=== PATIENT | female | born 1990 | race Caucasian/White ===

== ENCOUNTER 2017-05-03 06:09 | Inpatient (IN) ==
[2017-05-03] MEDS ORDERED: PITOCIN 30 UNITS/LR 30 UNITS/500 ML IV.SOLN IV SCH (06:10)
[2017-05-03] MEDS ORDERED: LR 1,000 ML IV SCH (06:10)
[2017-05-03] MEDS ORDERED: KEFZOL 1 GM/D5W 1 GM/50 ML IVPB IV PRN (06:10)
[2017-05-03] MEDS ORDERED: ZOFRAN IV PRN (06:10)
[2017-05-03] MEDS ORDERED: TYLENOL PO PRN (06:10)
[2017-05-03] MEDS ORDERED: PEPCID PO PRN (06:10)
[2017-05-03] MEDS ORDERED: STADOL IV PRN (06:10)
[2017-05-03] MEDS ORDERED: PEPCID IV PRN (06:10)
[2017-05-03] MEDS ORDERED: SODIUM CHLORIDE 0.9% INJ SCH (06:15)
[2017-05-03 07:08] LABS: URINE SOURCE VOIDED
[2017-05-03 07:08] LABS: MANUAL DIFF NEEDED? NO
[2017-05-03 07:11] LABS: BASO% 0.4 % (0.0-0.8); EOS# 0.15 X1000 (0.0-0.7); EOS% 1.8 % (0.0-10.0); HEMATOCRIT 33.4 % (37.0-47.0); HEMOGLOBIN 10.8 g/dL (12.0-16.0); IMM GRAN# 0.18 X1000 (0.0-0.04); IMM GRAN% 2.2 % (0.0-0.5); LYMPH# 2.45 X1000 (1.2-3.4); LYMPH% 29.3 % (20.5-51.1); MCH 29.2 PG (27-31); MCHC 32.3 g/dL (33-37); MCV 90.3 FL (81-99); MONO# 0.69 X1000 (0.11-0.59); MONO% 8.3 % (1.7-9.3); MPV 11.2 FL (7.4-10.4); PLT 209 X1000 (130-400)
[2017-05-03 07:21] LABS: UR AMPHETAMINES QUAL NONE DETECTED (NONE DETECT); UR BARBITUATES QUAL NONE DETECTED (NONE DETECT); UR BENZODIAZEPIN QUAL NONE DETECTED (NONE DETECT); UR CANNABINOIDS QUAL NONE DETECTED (NONE DETECT); UR COCAINE QUAL NONE DETECTED (NONE DETECT); UR MDMA QUAL NONE DETECTED (NONE DETECT); UR METHADONE QUAL NONE DETECTED (NONE DETECT); UR METHAMPHETAMINE QUAL NONE DETECTED (NONE DETECT); UR OPIATES QUAL NONE DETECTED (NONE DETECT); UR OXYCODONE QUAL NONE DETECTED (NONE DETECT); UR PCP QUAL NONE DETECTED (NONE DETECT); UR TCA QUAL NONE DETECTED (NONE DETECT)
[2017-05-03 07:31] LABS: BILIRUBIN URINE NEGATIVE (NEGATIVE); BLOOD URINE NEGATIVE (NEGATIVE); CLARITY CLEAR (CLEAR); COLOR YELLOW; GLUCOSE URINE NEGATIVE (NEGATIVE); LEUKOCYTES URINE 1+ (NEGATIVE); NITRITE URINE NEGATIVE (NEGATIVE); PROTEIN URINE NEGATIVE (NEGATIVE); UROBILINOGEN URINE NORMAL
[2017-05-03] MEDS ORDERED: NAROPIN 0.2% EPIDURAL SCH (09:45)
--- NOTE | 2017-05-03 13:49 | OPERATIVE NOTE ---
PROCEDURE DATE: 05/03/2017 DELIVERING PHYSICIAN: Antony Barreto MD TYPE OF DELIVERY: Spontaneous controlled vaginal delivery. ANESTHESIA: Epidural. FINDINGS: At 12:54, a 6 pound, 14 ounce male infant was delivered in occiput anterior presentation. There was a nuchal cord x1. Apgars were 9 at 1 minute and 10 at 5 minutes. SUMMARY: In summary, Ms Blas is a 26-year-old, 2, para 1-0-0-1, at term gestation. Her blood type is O positive, rubella immune. Hepatitis B surface antigen, HIV, and group B strep are negative. She was brought into the labor and delivery today for elective induction of labor. She was 2 cm upon admission. Membranes were ruptured revealing clear fluid. An epidural was placed for labor pain management. She progressed to labor without signs of stress or dystocia. She became complete and began pushing and very soon crowned. At that point, she was placed in dorsal lithotomy position. The perineum was prepped and draped in usual fashion. Spontaneous controlled vaginal delivery occurred. Once the infant's head was delivered, the shoulders and body were delivered without complications. Oropharynx was bulb suctioned. Cord was clamped and cut, and infant was handed to the nurses for further care and evaluation. Cord blood was obtained. Placenta was spontaneously delivered and was intact. There was a right labial laceration, which was repaired with a [id number] 3-0 Vicryl suture. BLOOD LOSS: Approximately 200 mL. COMPLICATIONS: No complications. Patient remained in the labor and delivery room recovering without difficulty. cc: Antony Barreto MD
[2017-05-03] MEDS ORDERED: BOOSTRIX VACCINE IM ONE (13:58)
[2017-05-03] MEDS ORDERED: BENADRYL IV PRN (13:58)
[2017-05-03] MEDS ORDERED: BENADRYL PO PRN (13:58)
[2017-05-03] MEDS ORDERED: MINERAL OIL PO PRN (13:58)
[2017-05-03] MEDS ORDERED: PERCOCET-5 PO PRN (13:58)
[2017-05-03] MEDS ORDERED: AMBIEN PO PRN (13:58)
[2017-05-03] MEDS ORDERED: CYTOTEC PO PRN (13:58)
[2017-05-03] MEDS ORDERED: M-M-R II VACCINE SUBQ ONE (13:58)
[2017-05-03] MEDS ORDERED: NORCO-5 PO PRN (13:58)
[2017-05-03] MEDS ORDERED: PITOCIN 20 UNITS/LR 20 UNITS/1,000 ML IV.SOLN IV SCH (13:58)
[2017-05-03] MEDS ORDERED: PITOCIN IM PRN (13:58)
[2017-05-03] MEDS ORDERED: HYDROXYZINE IM PRN (13:58)
[2017-05-03] MEDS ORDERED: PITOCIN 30 UNITS/LR 30 UNITS/500 ML IV.SOLN IV ONE (13:58)
[2017-05-03] MEDS ORDERED: XYLOCAINE-MPF 1% INJ PRN (13:58)
[2017-05-03] MEDS ORDERED: VENTOLIN HFA INH PRN (13:58)
[2017-05-03] MEDS ORDERED: NORCO-10 PO PRN (13:58)
[2017-05-03] MEDS ORDERED: PERCOCET-10 PO PRN (13:58)
[2017-05-03] MEDS ORDERED: HYDROXYZINE PO PRN (13:58)
[2017-05-03] MEDS: PERI MEDS (DERMOPLAST/NUPERCAINAL/TUCKS) MISC PRN (15:30)
[2017-05-03] MEDS: MOTRIN PO PRN (15:34)
[2017-05-03] MEDS: PERICOLACE PO SCH (20:31)
[2017-05-04] MEDS: MOTRIN PO PRN ×3 (02:22→21:26)
[2017-05-04 06:28] LABS: HEMATOCRIT 33.4 % (37.0-47.0); HEMOGLOBIN 10.7 g/dL (12.0-16.0); MCH 29.4 PG (27-31); MCV 91.8 FL (81-99); MPV 11.3 FL (7.4-10.4); RBC 3.64 XMIL (4.2-5.4)
[2017-05-04] MEDS: PERICOLACE PO SCH (20:00)
[2017-05-04] MEDS: PERI MEDS (DERMOPLAST/NUPERCAINAL/TUCKS) MISC PRN (20:07)
[2017-05-05] MEDS: MOTRIN PO PRN (11:52)
[2017-05-05 16:21] VITALS: BP 122/85
== END 2017-05-05 16:30 | disposition home or self-care (01) ==
LOC: P.LD 06:09 → P.WC 15:04
PROVIDERS: ADMIT Obstetrics & Gynecology; ATTEND Obstetrics & Gynecology

== ENCOUNTER 2017-06-10 14:18 | Inpatient (IN) ==
[2017-06-10 14:53] LABS: MANUAL DIFF NEEDED? NO
[2017-06-10 15:04] LABS: BASO% 0.3 % (0.0-0.8); EOS% 0.7 % (0.0-10.0); HEMATOCRIT 38.6 % (37.0-47.0); HEMOGLOBIN 12.4 g/dL (12.0-16.0); IMM GRAN# 0.06 X1000 (0.0-0.04); IMM GRAN% 0.4 % (0.0-0.5); LYMPH# 1.64 X1000 (1.2-3.4); LYMPH% 10.7 % (20.5-51.1); MCH 29.2 PG (27-31); MCHC 32.1 g/dL (33-37); MCV 90.8 FL (81-99); MONO# 1.09 X1000 (0.11-0.59); MONO% 7.1 % (1.7-9.3); MPV 11.4 FL (7.4-10.4); NEUT% 80.8 % (42.2-75.2); PLT 249 X1000 (130-400); RBC 4.25 XMIL (4.2-5.4)
[2017-06-10] MEDS ORDERED: DUONEB (A & A) INH ONE (15:07)
[2017-06-10] MEDS ORDERED: SOLU-MEDROL IV ONE (15:07)
--- NOTE | 2017-06-10 15:15 | Diag Imaging Result Doc PS360 ---
EXAM: CHEST-2 VIEWS - 06/10/2017 HISTORY: SOB TECHNIQUE: Chest two views COMPARISON: 05/12/2017 FINDINGS: There is situs inversus/dextrocardia similar to the previous exam. Heart size appears within normal limits. There are infiltrates at the bilateral bases which appear stable on the right and overall mildly decreased on the left, although there is mildly increased infiltrate at the superior left lower lobe. There are apparent small bilateral pleural effusions. There is no pneumothorax identified. IMPRESSION: Bibasilar infiltrates which appear stable on the right and overall mildly decreased on the left compared to the previous exam. Small bilateral pleural effusions. Electronically signed by Cristian Prather 06/10/2017 3:12 PM
[2017-06-10 15:18] LABS: AGAP 13; ALBUMIN 3.6 g/dL (3.5-5.0); ALKALINE PHOSPHATASE 99 U/L (32-104); BUN 4 mg/dL (8-22); CALCIUM 9.1 mg/dL (8.8-10.2); CHLORIDE 100 mmol/L (98-107); COSMO 265; GOT 14 U/L (10-30); GPT 14 U/L (10-36); POTASSIUM 3.4 mmol/L (3.5-5.1); SODIUM 134 mmol/L (136-145); TCO2 21 mmol/L (25-35)
--- NOTE | 2017-06-10 15:24 | PROVIDER DOCUMENTATION ---
This chart was entered by Maura Harrington Scribe, acting as scribe for Vanda Phillips CRNP. HPI-Respiratory General - General Chief Complaint: Asthma Attack Stated Complaint: PAIN WHEN BREATHING Time Seen by Provider: 06/10/17 15:02 Source: patient Allergies/Adverse Reactions: Patient Allergies Allergy/AdvReac Type Severity Reaction Status Date / Time latex Allergy Unknown HIVES Verified 06/10/17 14:25 Home Medications: Home Medication List Medication Instructions Recorded Confirmed Last Taken Type Albuterol Sulfate [Proair Hfa] 8.5 gm IH PRN PRN 10/13/15 06/10/17 Unknown History - History of Present Illness-Resp Nature of Presenting Problem: Pt is 26 y/o F presents to the ED with recheck for pneumonia. Pt states was diagnosed with pneumonia after child . Pt states 5 wks post . Pt states hx of asthma. Pt states fever this am. Pt states symptoms have been presents for 3 days. Quality of Pain: reports: aching Severity in ED: reports: mild Onset/Duration: reports: 3 days ago Timing: reports: still present Exposure: reports: unknown cause Cough Quality/Degree: reports: moderate Episode Frequency: occasional episodes Current Respiratory Medication Therapy: Initiated see nurses note Modifying Factors: improves with: nothing Associated Symptoms: reports: cough, fever/chills (fever), hurts to breathe, shortness of breath. denies: chest pain/soreness, dizziness, earache, facial pain, flu-like symptoms, headache, heart racing, hyperventilating, lightheadedness, muscle/bodyaches, nasal congestion, nasal drainage, sinus pain , short of breath, sore throat, sweaty, wheezing Similar Symptoms Previously?: Yes (present for 3 days ) Recently seen or treated by another doctor?: No Review of Systems - Adult - REVIEW OF SYSTEMS - ADULT Constitutional: reports: fever. denies: chills Eyes: denies: blurred vision, double vision Ears, Nose, Mouth & Throat: denies: ear pain, nose pain, throat pain Cardiovascular: reports: irregular heart rate (tachy). denies: chest pain, heart murmur Respiratory: reports: cough, shortness of breath. denies: wheezing Gastrointestinal: denies: abdominal pain, diarrhea, nausea, vomiting Genitourinary: denies: dysuria, flank pain, hematuria Musculoskeletal: denies: bone pain, joint pain, neck pain Integumentary: denies: hives, itching, rash Neurological: denies: dizziness/vertigo, headache/migraines, loss of balance, numbness, seizure, syncope Psychiatric: denies: anxiety, depression, suicidal thoughts Endocrine: reports: no symptoms reported Hematologic/Lymphatic: reports: no symptoms reported Allergic/Immunologic: reports: no symptoms reported All Other Systems: Reviewed and Negative Past History - Adult - PAST MEDICAL HISTORY-ADULT Review of Records: reports: Nursing Assessment Review, Medications Reviewed, Social history reviewed & non-contributory. Major Childhood Illnesses: reports: denies history Cardiovascular: reports: denies history Respiratory: reports: asthma Gastrointestinal: reports: denies history Obstetrical/Gynecological: reports: denies history Genitourinary: reports: denies history Musculoskeletal: reports: denies history Neurological: reports: denies history Psychiatric: reports: anxiety Endocrine/Immune: reports: denies history Other Conditions: reports: denies history - PRIOR SURGERIES/PROCEDURES Surgical/Procedure History: reports: reviewed, not pertinent - IMMUNIZATION STATUS Childhood Immunizations: See Nurse Assessment Flu Vaccine: See Nurse Assessment - FAMILY HISTORY Family History: reviewed, not pertinent - SOCIAL HISTORY Smoking: denies Substance Use: denies Living Situation: family Physical Exam-General - PHYSICAL EXAM-ADULT Initial Vital Signs Reviewed: Yes - CONSTITUTIONAL General Appearance: alert, mild distress. negative: lethargic, slow to respond - EYES Eyes: PERRL/EOMI, pink conjunctivae. negative: pale conjunctivae, sunken eyes - HEAD, EARS, NOSE, MOUTH & THROAT HENMT: normocephalic/atraumatic, moist mucous membranes, normal ENT inspection. negative: angioedema, hearing deficit - NECK Neck: supple, normal inspection. negative: lymphadenopathy, tender lateral - RESPIRATORY Respiratory: chest non-tender, lungs clear, decreased breath sounds. negative: accessory muscle use, crackles, wheezing - CARDIOVASCULAR Cardiovascular: normal peripheral pulses, tachycardia. negative: systolic murmur - GASTROINTESTINAL (ABDOMEN) Abdominal Exam: normal bowel sounds, non tender, soft. negative: distended, rebound, hernia - LYMPHATIC Lymphatic: no adenopathy. negative: enlargement, streaking - MUSCULOSKELETAL Back Exam: normal inspection, no CVA tenderness, no vertebral tenderness. negative: ecchymosis, muscle spasm Extremity: normal range of motion, non-tender, normal gait. negative: deformity , erythema - SKIN Integumentary: normal turgor, warm/dry, pallor. negative: cyanosis, erythema, swelling - NEUROLOGIC Neurologic: grossly normal. negative: aphasia, facial droop - PSYCHIATRIC Psych/Mental Status: normal mood/affect, oriented x 3. negative: paranoid, tearful Progress - PLAN OF CARE/RESULTS Progress/Plan/Lab Results: Vital Signs - 8 hr 06/10/17 14:22 06/10/17 14:36 06/10/17 15:20 Temperature 101.1 F H 99.7 F H Pulse Rate 117 H 124 H Respiratory Rate 18 20 Blood Pressure 108/64 O2 Sat by Pulse Oximetry 96 97 06/10/17 15:44 Temperature 99.7 F H Pulse Rate 147 H Respiratory Rate 22 Blood Pressure 115/76 O2 Sat by Pulse Oximetry 94 L Laboratory Results - last 24 hr 06/10/17 06/10/17 06/10/17 14:50 14:50 14:50 WBC RBC Hgb Hct MCV MCH MCHC RDW Std Deviation Plt Count MPV Immature Gran % (Auto) Neut % (Auto) Lymph % (Auto) Sunflower % (Auto) Eos % (Auto) Baso % (Auto) Immature Gran # (Auto) Neut # (Auto) Lymph # (Auto) Sunflower # (Auto) Eos # (Auto) Baso # (Auto) Sodium 134 L Potassium 3.4 L Chloride 100 Carbon Dioxide 21 L Anion Gap 13 BUN 4 L Creatinine 0.5 Estimated GFR/1.73 m2 > 60 BUN/Creatinine Ratio 8 Glucose 94 Calculated Osmolality 265 Calcium 9.1 Total Bilirubin 0.30 AST 14 ALT 14 Alkaline Phosphatase 99 Auz-R-Danqzezizua Pept 45 Total Protein 8.0 Albumin 3.6 Globulin 4.0 Albumin/Globulin Ratio 1.0 Plasma Lactate 1.1 06/10/17 14:50 WBC 15.38 H RBC 4.25 Hgb 12.4 Hct 38.6 MCV 90.8 MCH 29.2 MCHC 32.1 L RDW Std Deviation 14.1 Plt Count 249 MPV 11.4 H Immature Gran % (Auto) 0.4 Neut % (Auto) 80.8 H Lymph % (Auto) 10.7 L Sunflower % (Auto) 7.1 Eos % (Auto) 0.7 Baso % (Auto) 0.3 Immature Gran # (Auto) 0.06 H Neut # (Auto) 12.44 H Lymph # (Auto) 1.64 Sunflower # (Auto) 1.09 H Eos # (Auto) 0.10 Baso # (Auto) 0.05 Sodium Potassium Chloride Carbon Dioxide Anion Gap BUN Creatinine Estimated GFR/1.73 m2 BUN/Creatinine Ratio Glucose Calculated Osmolality Calcium Total Bilirubin AST ALT Alkaline Phosphatase [id number] Pept Total Protein Albumin Globulin Albumin/Globulin Ratio Plasma Lactate Orders Category Date Time Status Saline Loc NOW Care 06/10/17 14:28 Active CHEST-2 VIEWS [RAD] Stat Exams 06/10/17 14:[address] THORAX W/CONTRAST [CT] Stat Exams 06/10/17 15:59 Ordered BLOOD CULTURE [BLDCUL] Stat Lab 06/10/17 14:28 Ordered BNP [PRO B-NATRIURETIC PEPTIDE] Stat Lab 06/10/17 14:50 Completed CBC WITH DIFF [HEME] Stat Lab 06/10/17 14:50 Completed COMPREHENSIVE METABOLIC PANEL [CHEM] Stat Lab 06/10/17 14:50 Completed LACTATE, PLASMA [CHEM] Stat Lab 06/10/17 14:50 Completed Acetaminophen [Tylenol] Med 06/10/17 15:48 Discontinued 1,000 mg PO NOW ONE Albuterol 2.5MG/Ipratrop 0.5MG [Duoneb (A & A)] Med 06/10/17 15:07 Discontinued 6 ml INH NOW ONE Azithromycin 500 mg/Ns [Zithromax 500 mg/Ns] Med 06/10/17 15:49 Active 500 mg in 250 ml IV NOW CefTRIAXONE 1 GM/NS [Rocephin 1 gm/Ns] Med 06/10/17 15:49 Active 1 gm in 50 ml IV NOW Methylprednisolone Sod Succ [Solu-Medrol] Med 06/10/17 15:07 Discontinued 80 mg IV NOW ONE Aerosol Treatments Routine Oth 06/10/17 15:07 Active Aerosol Treatments Stat Oth 06/10/17 15:07 Active Pulse Oximetry Stat Oth 06/10/17 14:28 Active Discussed plan of care with patient. Patient agrees with plan and verbalizes understanding. Result Diagrams: 06/10/17 14:50 06/10/17 14:50 - XRAY 1 XRAY Study: Chest XRAY Interpretation: Bibasilar infiltrates with small bilat pleural effusions ( [place]) - CONSULTS/PCP/HOSPITALIST Notification #1 *Consult/PCP/Hospitalist*: Dr. Jane Time Discussed: 16:00 Reason/Comments: Admission Consult Disposition: Admit (Please CT chest before she goes up) Departure - Departure Date of Disposition Decision: 06/10/17 Time of Disposition Decision: 15:51 DIAGNOSIS: Pneumonia Qualifiers: Pneumonia type: due to unspecified organism Laterality: bilateral Lung location : lower lobe of lung Qualified Code(s): J18.9 - Pneumonia, unspecified organism Disposition: ADMITTED INPATIENT 09 Certified Medical Emergency: Emergent Condition: Stable Referrals and Follow-Ups: Diane Carvalho [Primary Care Provider] - - Critical Care Note This patient required my direct & personal management of CC.: No Attestation - Physician/ JOANNE Attestation Patient care was provided by Advanced Practice Provider:: Yes Advanced Practice Provider:: Vanda Phillips (The physician is on site and was consulted but did not have face to face contact with the patient. ) Advanced Practice Provider documentation review:: The Mid-level provider documentation, treatment plan and medical decision making was reviewed by the physician who agrees with all treatment and medical decision making by the MLP. The physician spent face to face time with patient:: No Advanced Practice Provider documentation review:: Supervising physician onsite and consulted in the evaluation and care of this patient. The physician did not have a face to face encounter with the patient. This chart was documented by the indicated scribe, (Maura Harrington Scribe) and accurately reflects the services I performed and decisions made by me, Vanda Phillips CRNP, as attested by the provider's signature.
[2017-06-10] MEDS ORDERED: TYLENOL PO ONE (15:48)
[2017-06-10] MEDS ORDERED: ROCEPHIN 1 GM/NS 1 GM/50 ML IVPB IV ONE (15:49)
[2017-06-10] MEDS ORDERED: ZITHROMAX 500 MG/NS 500 MG/250 ML IVPB IV ONE (15:49)
--- NOTE | 2017-06-10 16:50 | Diag Imaging Result Doc PS360 ---
EXAM: CT THORAX W/CONTRAST - 06/10/2017 HISTORY: SOB TECHNIQUE: With intravenous contrast. Dose reduction protocol. COMPARISON: None. FINDINGS: There is dextrocardia with situs inversus. There is bronchiectasis at the left lingula. There is bronchiectasis at the inferior right lower lobe and inferior right middle lobe. There is possibly mild bronchiectasis at the inferior left lower lobe. There are bilateral lower lobe and inferior right middle lobe infiltrates. There is more focal consolidation at the superior segment left lower lobe. There is no pleural effusion or pneumothorax identified. There are mildly prominent bilateral hilar and mediastinal lymph nodes which may be reactive. IMPRESSION: Dextrocardia with situs inversus. Bronchiectasis at left lingula, inferior right lower lobe, and inferior right middle lobe. Possible mild bronchiectasis at inferior left lower lobe. Bilateral lower lung infiltrates. These may represent a combination of chronic and acute infiltrates. There is more focal consolidation at the superior segment of the left lower lobe which is particularly suspicious for acute pneumonia. Electronically signed by Cristian Prather 06/10/2017 4:47 PM
[2017-06-10] MEDS: TYLENOL PO PRN (18:30)
[2017-06-10] MEDS ORDERED: ALBUTEROL NEB INH PRN (18:49)
[2017-06-10] MEDS: NS 1,000 ML IV SCH (19:12)
[2017-06-10] MEDS: LEVAQUIN 500 MG/D5W 500 MG/100 ML IVPB IV SCH (19:12)
[2017-06-10] MEDS: ALBUTEROL NEB INH SCH ×2 (19:29→23:03)
--- NOTE | 2017-06-10 20:53 | HISTORY AND PHYSICAL ---
PRIMARY CARE PHYSICIAN: Diane Carvalho MD PRESENTING COMPLAINT: Cough, greenish expectoration and fever. HISTORY OF PRESENTING COMPLAINT: Ms. Blas is a 26-year-old, female , with a history of bronchial asthma since and also known to have dextrocardia with situs inversus who is 5 weeks . Came into the emergency department about 3 weeks ago due to cough, green expectoration. Patient thought it was her regular asthma. However, at that time, she was told to have pneumonia and was sent home on Keflex and azithromycin. She completed a course for 7 days, which according to her, she did improve slightly; however, for the past week, she realized that her symptoms flared up, excessive coughing, yellowish expectoration which has gone into greenish, no blood. Since yesterday patient has been having on and off fever, chills and sweats. She came to the emergency room where she was evaluated. Her presenting temperature was a 101.1 degrees with a pulse rate of 117. She had a chest x-ray which showed bibasilar infiltrates which appear stable on the right overall, mildly decreased on the left. We are consulted for admission for failed outpatient therapy. PAST MEDICAL HISTORY: Asthma. Recently diagnosed mastitis. Dextrocardia with situs inversus and scoliosis. PAST SURGICAL HISTORY: [place] tooth extraction. FAMILY HISTORY: Positive for grandparents with coronary artery disease with stents. HOME MEDICATIONS: Recently finished taking Keflex and azithromycin and the patient has been on albuterol inhaler for some time and also Symbicort, but no more on Symbicort now. ALLERGIES: Latex and patient also said she had an allergy test and she is allergic to just a wide variety of environmental stuff. SOCIAL HISTORY: Patient is , has 2 kids, 4 years old and 5 weeks old. Does not work. Has about 5 pack year history of smoking. Stopped smoking about 2 years ago because it was making her supposed asthma worse. Denies any street drug use. REVIEW OF SYSTEMS: Fourteen point review of system conducted with Ms. Blas and negative except what we have in the HPI. Specifically, she denies any chest pain. No hemoptysis. No abdominal pain. No nausea. No vomiting. No urinary symptoms. PHYSICAL EXAMINATION: CURRENT VITALS: Blood pressure is 115/57, pulse of 118, respiration is 20, and temperature is 100.1 degrees. GENERAL: Ms. Blas is a 26-year-old female, well-nourished. She was sitting up the bed, not seemingly distressed. HEENT: Mucosa is pink and moist. Anicteric. Acyanotic. Neck Supple. No JVD and no carotid bruit. Head is normocephalic and atraumatic. CHEST: Air entry is bilaterally reduced. There is a diffuse end-expiratory rhonchi in both lung sheth. Did not really appreciate any crackles. CARDIOVASCULAR: Regular rate, slightly tachycardic. No murmurs, no rubs. No gallops. [place] is at 5th intercostal space, right midclavicular line. CHEST: The anterior distal aspect of the chest seems to have a pectus excavatum. ABDOMEN: Soft, nontender. I did not appreciate any hepatosplenomegaly. Bowel sounds were present. EXTREMITIES: No pedal edema. ENGINEERING LAB TECHNICIAN: Patient is awake alert oriented x4. Executive functions are intact. Cranial nerves 2-12 have grossly been examined and are unremarkable. Sensation is intact and motor is 5/5 in all extremities. PSYCHIATRIC: Patient has very good insight and judgment. Very pleasant to talk. LABORATORY DATA: WBC is 15.38, hemoglobin is 12.4, platelet count of 249,000. Sodium is 134, potassium is 3.4, chloride is 100, bicarb is 21, BUN is 4, creatinine 0.5, liver enzymes and other lab works have been normal. Plasma lactate is 1.1. DIAGNOSTIC STUDIES: A chest x-ray on presentation shows bibasilar infiltrates, small bilateral pleural effusions. A CT scan of the chest shows the dextrocardia with situs inversus. Bronchiectasis at left lingula, inferior right lower lobe and inferior right middle lobe. Possible mild bronchiectasis at inferior left lower lobe. Bilateral lower lung infiltrates, which may represent combination of chronic and acute infiltrates. There is also suspicion of acute pneumonia on the left lower lobe. ASSESSMENT: Ms. Blas is a 26-year-old, female, with a history of chronic asthma, which I think is actually due to bronchiectasis who presented 3 weeks ago for lower respiratory tract infection, slightly improved, but then it has worsened. Came in this time and seems to be septic. 1. Sepsis secondary to multifocal pneumonia. 2. Infected bronchiectasis. 3. Dextrocardia with situs inversus noted. 4. 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 5. . PLAN: Patient is not breast feeding. She stopped breast-feeding couple of weeks ago. Because she was just placed on Keflex and azithromycin, I would prefer to use a different antibiotic for the infected bronchiectasis. I will start her on levofloxacin 500 mg IV daily for about 24-48 hours and see if she is much better and can be discharged. We will do a very intense pulmonary toilette. We will do nebulization with albuterol. We will ask physical therapy for CPT and incentive spirometer. We will get a sputum and do Gram stain and culture to guide us with antibiotic choice. I have stressed the need for patient to follow up with Pulmonary Medicine after discharged. cc: Clifton Jane MD MTDD
[2017-06-11] MEDS: ALBUTEROL NEB INH SCH ×2 (03:32→08:22)
[2017-06-11] MEDS: NS 1,000 ML IV SCH ×2 (05:20→14:32)
[2017-06-11 07:21] LABS: AGAP 12; BUN 5 mg/dL (8-22); CALCIUM 8.9 mg/dL (8.8-10.2); CHLORIDE 105 mmol/L (98-107); COSMO 274; POTASSIUM 3.8 mmol/L (3.5-5.1); SODIUM 138 mmol/L (136-145); TCO2 21 mmol/L (25-35)
[2017-06-11 07:51] LABS: BASO% 0.1 % (0.0-0.8); EOS# 0.01 X1000 (0.0-0.7); HEMATOCRIT 34.9 % (37.0-47.0); HEMOGLOBIN 11.4 g/dL (12.0-16.0); IMM GRAN# 0.07 X1000 (0.0-0.04); IMM GRAN% 0.3 % (0.0-0.5); LYMPH# 1.35 X1000 (1.2-3.4); LYMPH% 6.6 % (20.5-51.1); MANUAL DIFF NEEDED? YES; MCH 29.3 PG (27-31); MCHC 32.7 g/dL (33-37); MCV 89.7 FL (81-99); MONO% 4.4 % (1.7-9.3); MPV 11.2 FL (7.4-10.4); NEUT% 88.6 % (42.2-75.2); PLT 262 X1000 (130-400); RBC 3.89 XMIL (4.2-5.4)
[2017-06-11 07:52] LABS: BANDS 7 % (0-1); LYMPHS 8 % (21-51)
[2017-06-11] MEDS: XOPENEX NEB INH PRN ×2 (16:07→19:22)
[2017-06-11] MEDS: MAXIPIME 1 GM/NS 1 GM/50 ML IVPB IV SCH (16:23)
[2017-06-11] MEDS ORDERED: ZOFRAN IV PRN (18:04)
[2017-06-11] MEDS: LEVAQUIN 500 MG/D5W 500 MG/100 ML IVPB IV SCH (18:09)
[2017-06-11] MEDS: MUCOMYST 20% INH SCH (19:22)
--- NOTE | 2017-06-11 19:39 | PROGRESS NOTE ---
DATE: 06/11/2017 SUBJECTIVE: The patient has no focal complaints. Clinically, she seems to be doing better. Still having shortness of breath. OBJECTIVE: Vital signs: Blood pressure is 118/62, heart rate of 84, respiratory rate 18, temperature was 97.7 degrees, 96% on room air. Cardiovascular: Regular rate and rhythm. Pulmonary: Bilateral breath sounds. Clear to auscultation. Somewhat diminished at the bases. GI: Soft, nontender, nondistended. Bowel sounds are positive. Extremities: No clubbing or cyanosis. Lymphatics: No peripheral edema. Neurological: Nonfocal. LABORATORY DATA: White count is 20 today, she did get some steroids yesterday. Rest of her basic is normal. PROBLEM LIST: Bronchiectasis pneumonia. She is on Levaquin. I have added cefepime because of her increase in white count and significant bronchiectasis. Clinically she does not sound bad, she is not hypoxic. Her lung exam is good but her CT scan shows pretty significant pneumonia and bronchiectasis and she does have a high white count. So were going to watch her a little bit longer. If she is stable I think she could probably go home tomorrow if her white count comes down. I am going to hold on any further steroids because she is not wheezing. If it continues to go up she may need either ID consultation or pulmonary evaluation. I do think she will need pulmonary evaluation as an outpatient. She is on Xopenex nebs. I am going to add some Mucomyst and Mucinex and see how she does. Again hopefully discharge in the next 24 hours with pulmonary followup. cc: Dae Godinez MD
[2017-06-11] MEDS: TYLENOL PO PRN (20:58)
[2017-06-11] MEDS: MUCINEX PO SCH (20:58)
[2017-06-12] MEDS: NS 1,000 ML IV SCH ×3 (01:47→21:24)
[2017-06-12] MEDS: TYLENOL PO PRN ×2 (02:25→08:34)
[2017-06-12] MEDS: MAXIPIME 1 GM/NS 1 GM/50 ML IVPB IV SCH ×2 (02:29→15:56)
[2017-06-12 06:04] LABS: HEMOGLOBIN 9.8 g/dL (12.0-16.0); MCH 28.7 PG (27-31); MCHC 31.6 g/dL (33-37); MCV 90.6 FL (81-99); MPV 11.4 FL (7.4-10.4); RBC 3.42 XMIL (4.2-5.4)
[2017-06-12 06:35] LABS: AGAP 10; BUN 4 mg/dL (8-22); CALCIUM 8.1 mg/dL (8.8-10.2); CHLORIDE 110 mmol/L (98-107); COSMO 276; POTASSIUM 3.2 mmol/L (3.5-5.1); SODIUM 140 mmol/L (136-145); TCO2 20 mmol/L (25-35)
[2017-06-12] MEDS: XOPENEX NEB INH PRN ×2 (07:14→20:22)
[2017-06-12] MEDS: MUCOMYST 20% INH SCH ×2 (07:14→20:21)
--- NOTE | 2017-06-12 08:22 | PROGRESS NOTE ---
DATE: 06/12/2017 SUBJECTIVE: The patient notes she is still coughing and congested. Still increased work of breathing. Still short of breath this morning/ she got up to go the bathroom did not feel well. OBJECTIVE: Vital signs reviewed. Temperature 98 degrees, pulse 97 to 110, respiratory 14 and 19, BP 125/77, saturation 99% on room air. General: Patient is awake, alert, currently in no respiratory distress. She is lying flat in the bed. HEENT: Normocephalic, atraumatic. [place]. Neck supple. CV: Regular rate. Chest: Relatively clear. Good air movement bilaterally. No apparent wheezing currently. Extremities: Moves all extremities well. Neurologic: No changes. LABORATORY DATA: WBCs 15. Hemoglobin and hematocrit 9 and 31. Potassium 3.2. ASSESSMENT: 1. Hypokalemia. We will replace. 2. Anemia. Her hemoglobin and hematocrit have dropped slightly from 12 and 38 down to 9.8 and 31. Expect this is more delusional effect. She has had no episodes of bleeding, however, we will recheck in the a.m. 3. Pneumonia. She is currently on Levaquin and cefepime. Leukocytosis, improved. PLAN: We will continue Levaquin and cefepime currently. Will add back Solu-Medrol. We will recheck her labs in the a.m. Further orders as needed. cc: Jayme Last MD
[2017-06-12] MEDS: SOLU-MEDROL IV SCH ×3 (08:33→23:31)
[2017-06-12] MEDS: ZITHROMAX PO SCH (08:33)
[2017-06-12] MEDS: MUCINEX PO SCH ×2 (08:34→21:24)
[2017-06-12] MEDS: ADVAIR 250/50 DISKUS INH SCH ×2 (08:58→20:22)
[2017-06-12] MEDS ORDERED: LEVAQUIN PO SCH (09:00)
[2017-06-13] MEDS: MAXIPIME 1 GM/NS 1 GM/50 ML IVPB IV SCH (03:07)
[2017-06-13 06:15] LABS: HEMATOCRIT 32.7 % (37.0-47.0); HEMOGLOBIN 10.3 g/dL (12.0-16.0); MCH 28.5 PG (27-31); MCHC 31.5 g/dL (33-37); MCV 90.3 FL (81-99); MPV 11.3 FL (7.4-10.4); RBC 3.62 XMIL (4.2-5.4)
[2017-06-13 06:48] LABS: AGAP 11; ALBUMIN 3.2 g/dL (3.5-5.0); ALKALINE PHOSPHATASE 90 U/L (32-104); BUN 6 mg/dL (8-22); CALCIUM 9.1 mg/dL (8.8-10.2); CHLORIDE 107 mmol/L (98-107); COSMO 278; GOT 7 U/L (10-30); GPT 10 U/L (10-36); MAGNESIUM 1.7 mg/dL (1.5-2.7); POTASSIUM 3.5 mmol/L (3.5-5.1); SODIUM 139 mmol/L (136-145); TCO2 21 mmol/L (25-35); TOTAL BILIRUBIN < 0.15 mg/dL (0.20-1.00); TOTAL PROTEIN 7.1 g/dL (6.3-8.3)
[2017-06-13] MEDS: XOPENEX NEB INH PRN (07:10)
[2017-06-13] MEDS: ADVAIR 250/50 DISKUS INH SCH (07:10)
[2017-06-13] MEDS: MUCOMYST 20% INH SCH (07:10)
[2017-06-13 07:48] VITALS: BP 124/64
[2017-06-13] MEDS ORDERED: ALBUTEROL NEB INH PRN (08:25)
[2017-06-13] MEDS ORDERED: OMNICEF PO SCH (09:00)
[2017-06-13] MEDS: MUCINEX PO SCH (09:29)
[2017-06-13] MEDS: ZITHROMAX PO SCH (09:29)
[2017-06-13] MEDS: NS 1,000 ML IV SCH (09:29)
[2017-06-13] MEDS ORDERED: SOLU-MEDROL IV SCH (11:00)
--- NOTE | 2017-06-14 11:43 | DISCHARGE SUMMARY ---
ADMISSION DATE: 06/10/2017 DISCHARGE DATE: 06/13/2017 DIAGNOSES: 1. Sepsis due to multifocal pneumonia. 2. Infected bronchiectasis. 3. Dextrocardia with situs inversus. 4. 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 5. . 6. Anemia. HOSPITAL COURSE: Ms. Blas presented to the emergency room complaining of cough, productive for green sputum, and fevers. She was found to have multifocal pneumonia. Blood cultures returned with no growth. Sputum culture revealed normal emma. She she received antibiotic coverage of Levaquin and cefepime, as well as steroid supplements with DuoNeb's q.4 hours. She maintain sats at 96-100 on room air. Never requiring supplemental oxygen. White count did peak at 20.4. It had declined to 11.8. Of course, the patient was on steroids which will cause of somewhat of a rise. Thankfully, she did improve over hospital course and is ready to be discharged. PHYSICAL EXAMINATION: Cardiovascular: Regular rate and rhythm. S1 and S2 appreciated. Pulmonary: Breath sounds are clear with no increased work of breathing noted. Chest rises and falls symmetrically with respiration. Gastrointestinal: Abdomen is soft, nontender, nondistended. Bowel sounds in all 4 quadrants. Extremities: No clubbing, cyanosis, or edema. Calves nontender. Pulses palpable x4. DIAGNOSTICS: 1. Chest x-ray revealed bibasilar infiltrates with small bilateral pleural effusions. 2. CT of the chest revealed dextrocardia with situs inversus, bronchiectasis, as well as bilateral lower lobe infiltrates suspicious for pneumonia. DISCHARGE MEDICATIONS: 1. Albuterol inhaler 1-2 puffs q.6 hours p.r.n. wheezing. 2. Medrol Dosepak. 3. Omnicef 300 mg p.o. b.i.d. for 7 days. 4. Z-Daniel. Take as directed. 5. DuoNeb's. 6. Prescription for a nebulizer machine. The patient has no insurance. She did request having a neb machine as well as DuoNeb's. She was encouraged to call the local pharmacies to see if they have any machines in stock that are affordable, as well as asked for any avenues they may know to pursue a machine. [employer] Equipment [employer] did assist the patient. FOLLOWUP: She is to follow up with Dr. Diane Carvalho, her primary care provider, in 1-2 weeks or sooner if needed. She is being discharged home in stable condition with family members. TIME SPENT: This is a greater than 30 minute discharge. Dictated by AIMEE Dugan for Jayme Last MD cc: AIMEE Dugan MD
== END 2017-06-13 16:00 | disposition home or self-care (01) ==
LOC: P.ED 14:18 → P.MEDSURG 16:25 → SUATTDRO 16:25
PROVIDERS: ATTEND Family Medicine